=== PATIENT | male | born 1960 | race African-American/Black ===

== ENCOUNTER 2023-12-15 12:30 | Inpatient (IN) | payer MEDICAID, OTHER ==
[~2023-12-15] VITALS: Ht 180.3 cm; Wt 79.4 kg
[2023-12-15 12:30] VITALS: BP_SYST 96; PULSE 87; RESP 23; TEMP 97.7; O2SAT 96
[2023-12-15 12:57] LABS: BASOPHILS # (AUTO) 0.1 K/uL (0.0-0.2); BASOPHILS % (AUTO) 0.9 % (0.0-2.0); EOSINOPHILS # (AUTO) 0.2 K/uL (0.0-0.4); EOSINOPHILS % (AUTO) 2.6 % (0.0-4.0); HEMATOCRIT 46.2 % (36-54); HEMOGLOBIN 15.2 g/dL (14.0-18.0); LYMPHOCYTES # (AUTO) 1.6 K/uL (1.0-5.5); LYMPHOCYTES % (AUTO) 25.4 % (20.5-51.5); MEAN CORPUSCULAR HEMOGLOBIN 28 pg (27-31); MEAN CORPUSCULAR HGB CONC 33 % (32-36); MEAN CORPUSCULAR VOLUME 86 fL (79.0-98.0); MONOCYTES # (AUTO) 0.4 K/uL (0.0-1.0); MONOCYTES % (AUTO) 7.2 % (1.7-9.3); NEUTROPHILS # (AUTO) 3.9 K/uL (1.8-7.7); NEUTROPHILS % (AUTO) 63.9 % (40.0-70.0); PLATELET COUNT (AUTO) 215 K/uL (130-430); RED BLOOD CELL COUNT(AUTO) 5.37 MIL/uL (4.2-6.2); WHITE BLOOD COUNT (AUTO) 6.1 K/uL (4.8-10.8)
[2023-12-15 13:16] LABS: INR 0.9 (0.80-1.20); PROTHROMBIN TIME 10.2 SECS (9.5-12.5)
[2023-12-15 13:19] LABS: ANION GAP 10 (5-15); CALCIUM 8.7 mg/dL (8.4-11.0); CARBON DIOXIDE 27 mmol/L (23-29); CHLORIDE 105 mmol/L (98-107); CHOLESTEROL 188 mg/dL (<200); CREATININE 0.93 mg/dL (0.55-1.30); GFR AFRICAN AMERICAN 105 mL/min (>90); GLUCOSE 125 mg/dL (74-106); HDL CHOLESTEROL 59 mg/dL (>45); POTASSIUM 3.6 mmol/L (3.5-5.1); SODIUM SERUM 142 mmol/L (136-145); TRIGLYCERIDES 62 mg/dL (30-150); UREA NITROGEN, BLOOD 13 mg/dL (8-21)
[2023-12-15 13:20] LABS: GFR NON AFRICAN-AMERICAN 87 mL/min (>90)
[2023-12-15] MEDS ORDERED: NOR10 PO (13:57)
[2023-12-15] MEDS ORDERED: LISI40TA13 PO (13:59)
[2023-12-15 14:01] LABS: BILIRUBIN,URINE NEGATIVE (NEGATIVE); BLOOD, URINE NEGATIVE (NEGATIVE); CLARITY/URINE CLEAR (CLEAR); COLOR,URINE YELLOW (YELLOW); GLUCOSE,URINE NEGATIVE (NEGATIVE); KETONES,URINE NEGATIVE (NEGATIVE); LEUKOCYTE ESTERASE ,URINE NEGATIVE (NEGATIVE); NITRITE, URINE NEGATIVE (NEGATIVE); PROTEIN URINE NEGATIVE (NEGATIVE); UROBILINOGEN,URINE 0.2 (0.2-1.0)
[2023-12-15 14:19] LABS: BARBITURATE, URINE NEGATIVE (NEG <=200); BENZODIAZEPINE, URINE NEGATIVE (NEG <=150); CANNABINOID, URINE NEGATIVE (NEG <=50); COCAINE, URINE POSITIVE (NEG <=150); METHAMPHETAMINES SCREEN,URINE NEGATIVE (NEG <=500); OPIATE, URINE NEGATIVE (NEG <=100); PHENCYCLIDINE SCREEN,URINE NEGATIVE (NEG <=25); UR TRICYCLIC ANTIDEPRESSANTS NEGATIVE (NEG <=300); URINE AMPHETAMINE NEGATIVE (NEG <=500); URINE METHADONE NEGATIVE (NEG <=200); URINE OXYCODONE SCREEN NEGATIVE (NEG <=100)
[2023-12-15] MEDS ORDERED: ONDANSETRON HCL 4 MG/2 ML VIAL IVP PRN (15:45)
[2023-12-15] MEDS ORDERED: MUPIROCIN 2% TOPICAL OINTMENT 22 GM NS PRN (15:45)
[2023-12-15] MEDS ORDERED: ACETAMINOPHEN 325 MG TABLET PO PRN (15:45)
[2023-12-15] MEDS ORDERED: MAGNESIUM SULFATE 50 ML IV PRN (15:45)
[2023-12-15] MEDS ORDERED: MORPHINE 2 MG/ML INJ. SYRINGE IVP PRN ×2 (15:45)
[2023-12-15] MEDS ORDERED: POTASSIUM CHLORIDE 20 MEQ TABLET.ER PO PRN (15:45)
[2023-12-15 18:01] VITALS: BP_SYST 163; PULSE 66; RESP 16; TEMP 97.7
[2023-12-15 20:00] VITALS: BP_SYST 153; PULSE 66; RESP 18; TEMP 97.9; O2SAT 98
[2023-12-15] MEDS: HEPARIN SODIUM,PORCINE 5,000 UNITS/ML VIAL SUBCUT SCH (22:23)
[2023-12-16 00:45] VITALS: BP_SYST 166; PULSE 68; RESP 16; TEMP 97.1; O2SAT 98
[2023-12-16 07:20] LABS: BASOPHILS # (AUTO) 0.1 K/uL (0.0-0.2); BASOPHILS % (AUTO) 0.7 % (0.0-2.0); EOSINOPHILS # (AUTO) 0.2 K/uL (0.0-0.4); EOSINOPHILS % (AUTO) 2.2 % (0.0-4.0); HEMATOCRIT 47.6 % (36-54); HEMOGLOBIN 15.3 g/dL (14.0-18.0); LYMPHOCYTES # (AUTO) 2.3 K/uL (1.0-5.5); LYMPHOCYTES % (AUTO) 31.5 % (20.5-51.5); MEAN CORPUSCULAR HEMOGLOBIN 28 pg (27-31); MEAN CORPUSCULAR HGB CONC 32 % (32-36); MEAN CORPUSCULAR VOLUME 86 fL (79.0-98.0); MONOCYTES # (AUTO) 0.7 K/uL (0.0-1.0); MONOCYTES % (AUTO) 9.2 % (1.7-9.3); NEUTROPHILS # (AUTO) 4.2 K/uL (1.8-7.7); NEUTROPHILS % (AUTO) 56.4 % (40.0-70.0); PLATELET COUNT (AUTO) 220 K/uL (130-430); RED BLOOD CELL COUNT(AUTO) 5.53 MIL/uL (4.2-6.2); RED CELL DISTRIBUTION WIDTH 14.5 % (9.0-15.0); WHITE BLOOD COUNT (AUTO) 7.4 K/uL (4.8-10.8)
[2023-12-16 07:49] LABS: CALCIUM 9.2 mg/dL (8.4-11.0); CREATININE 0.87 mg/dL (0.55-1.30); POTASSIUM 3.5 mmol/L (3.5-5.1)
[2023-12-16 08:00] VITALS: BP_SYST 166; PULSE 66; RESP 17; TEMP 99; O2SAT 97
[2023-12-16] MEDS: ATORVASTATIN 20 MG TABLET PO SCH (10:15)
[2023-12-16] MEDS: amLODIPine BESYLATE 10 MG TABLET PO SCH (10:16)
[2023-12-16] MEDS: ASPIRIN 81 MG TABLET(ECOTRIN) PO SCH (10:16)
[2023-12-16 12:23] VITALS: BP_SYST 153; PULSE 66; RESP 18; TEMP 98.7; O2SAT 100
[2023-12-16] MEDS: lisinopriL 20 MG TABLET PO ONE (14:43)
[2023-12-16 16:33] VITALS: BP_SYST 162; PULSE 60; RESP 18; TEMP 98.3; O2SAT 98
[2023-12-16] MEDS ORDERED: hydrALAZINE HCL 20 MG/ML VIAL IVP PRN (17:30)
[2023-12-16 20:00] VITALS: BP_SYST 149; PULSE 62; RESP 18; TEMP 98.9; O2SAT 100
[2023-12-16] MEDS: OMEPRAZOLE Non-Formulary 20 MG CAPSULE.DR PO SCH (20:45)
[2023-12-16] MEDS: lisinopriL 20 MG TABLET PO SCH (21:58)
[2023-12-17 00:02] VITALS: BP_SYST 158; PULSE 69; RESP 18; TEMP 98.1; O2SAT 98
[2023-12-17 06:31] LABS: BASOPHILS # (AUTO) 0.1 K/uL (0.0-0.2); BASOPHILS % (AUTO) 0.9 % (0.0-2.0); EOSINOPHILS # (AUTO) 0.2 K/uL (0.0-0.4); HEMOGLOBIN 15.8 g/dL (14.0-18.0); LYMPHOCYTES # (AUTO) 2.2 K/uL (1.0-5.5); LYMPHOCYTES % (AUTO) 28.7 % (20.5-51.5); MEAN CORPUSCULAR HEMOGLOBIN 28 pg (27-31); MEAN CORPUSCULAR HGB CONC 32 % (32-36); MEAN CORPUSCULAR VOLUME 86 fL (79.0-98.0); MONOCYTES # (AUTO) 0.6 K/uL (0.0-1.0); MONOCYTES % (AUTO) 8.2 % (1.7-9.3); NEUTROPHILS # (AUTO) 4.6 K/uL (1.8-7.7); NEUTROPHILS % (AUTO) 59.2 % (40.0-70.0); PLATELET COUNT (AUTO) 231 K/uL (130-430); RED BLOOD CELL COUNT(AUTO) 5.71 MIL/uL (4.2-6.2); WHITE BLOOD COUNT (AUTO) 7.8 K/uL (4.8-10.8)
[2023-12-17 06:43] LABS: CREATININE 0.85 mg/dL (0.55-1.30); POTASSIUM 3.6 mmol/L (3.5-5.1)
[2023-12-17 07:50] VITALS: BP_SYST 162; PULSE 64; RESP 16; TEMP 98.1; O2SAT 99
[2023-12-17] MEDS: PANTOPRAZOLE SODIUM 40 MG TAB PO SCH (09:08)
[2023-12-17 11:26] VITALS: BP_SYST 153; PULSE 62; RESP 18; TEMP 98.2; O2SAT 100
[2023-12-17] MEDS: DOCUSATE SODIUM 100 MG CAPSULE PO PRN (15:54)
[2023-12-17] MEDS: NICOTINE 21 MG/24 HR PATCH.TD24 TD ONE (15:54)
[2023-12-17] MEDS: CLOPIDOGREL BISULFATE 75 MG TABLET PO ONE (15:54)
[2023-12-17 16:09] VITALS: BP_SYST 145; PULSE 69; RESP 16; TEMP 98; O2SAT 100
[2023-12-17 20:00] VITALS: BP_SYST 156; PULSE 75; RESP 18; TEMP 97.7; O2SAT 98
[2023-12-18 00:10] VITALS: BP_SYST 156; PULSE 75; RESP 18; TEMP 97.7; O2SAT 97
[2023-12-18 07:45] VITALS: BP_SYST 162; PULSE 72; RESP 12; TEMP 97.7; O2SAT 99
[2023-12-18 08:28] LABS: BASOPHILS # (AUTO) 0.1 K/uL (0.0-0.2); BASOPHILS % (AUTO) 1.1 % (0.0-2.0); EOSINOPHILS # (AUTO) 0.2 K/uL (0.0-0.4); EOSINOPHILS % (AUTO) 3.3 % (0.0-4.0); HEMATOCRIT 48.3 % (36-54); LYMPHOCYTES # (AUTO) 1.8 K/uL (1.0-5.5); LYMPHOCYTES % (AUTO) 25.6 % (20.5-51.5); MEAN CORPUSCULAR HEMOGLOBIN 28 pg (27-31); MEAN CORPUSCULAR HGB CONC 33 % (32-36); MEAN CORPUSCULAR VOLUME 85 fL (79.0-98.0); MONOCYTES # (AUTO) 0.6 K/uL (0.0-1.0); MONOCYTES % (AUTO) 9.2 % (1.7-9.3); NEUTROPHILS # (AUTO) 4.2 K/uL (1.8-7.7); NEUTROPHILS % (AUTO) 60.8 % (40.0-70.0); PLATELET COUNT (AUTO) 228 K/uL (130-430); RED BLOOD CELL COUNT(AUTO) 5.67 MIL/uL (4.2-6.2); WHITE BLOOD COUNT (AUTO) 6.9 K/uL (4.8-10.8)
[2023-12-18 08:36] LABS: CALCIUM 9.2 mg/dL (8.4-11.0); CREATININE 0.92 mg/dL (0.55-1.30); POTASSIUM 3.8 mmol/L (3.5-5.1)
[2023-12-18] MEDS: CLOPIDOGREL BISULFATE 75 MG TABLET PO SCH (09:20)
[2023-12-18] MEDS: NICOTINE 21 MG/24 HR PATCH.TD24 TD SCH (09:24)
[2023-12-18 11:56] VITALS: BP_SYST 148; PULSE 70; RESP 18; TEMP 97.8
[2023-12-18 15:55] VITALS: BP_SYST 158; PULSE 77; RESP 16; TEMP 98; O2SAT 95
[2023-12-18 19:50] VITALS: BP_SYST 138; PULSE 80; RESP 18; TEMP 98.6; O2SAT 98
[2023-12-18 20:15] VITALS: BP_SYST 163; PULSE 82; RESP 20; TEMP 98.2; O2SAT 99
[2023-12-19] VITALS: BP_SYST 144; PULSE 81; RESP 20; TEMP 98; O2SAT 97
[2023-12-19 07:18] LABS: BASOPHILS # (AUTO) 0.1 K/uL (0.0-0.2); BASOPHILS % (AUTO) 0.8 % (0.0-2.0); EOSINOPHILS # (AUTO) 0.3 K/uL (0.0-0.4); EOSINOPHILS % (AUTO) 3.9 % (0.0-4.0); HEMATOCRIT 46.2 % (36-54); HEMOGLOBIN 15.1 g/dL (14.0-18.0); LYMPHOCYTES # (AUTO) 1.7 K/uL (1.0-5.5); LYMPHOCYTES % (AUTO) 25.9 % (20.5-51.5); MEAN CORPUSCULAR HEMOGLOBIN 28 pg (27-31); MEAN CORPUSCULAR HGB CONC 33 % (32-36); MEAN CORPUSCULAR VOLUME 85 fL (79.0-98.0); MONOCYTES # (AUTO) 0.6 K/uL (0.0-1.0); MONOCYTES % (AUTO) 9.7 % (1.7-9.3); NEUTROPHILS % (AUTO) 59.7 % (40.0-70.0); PLATELET COUNT (AUTO) 216 K/uL (130-430); RED BLOOD CELL COUNT(AUTO) 5.43 MIL/uL (4.2-6.2); RED CELL DISTRIBUTION WIDTH 13.9 % (9.0-15.0); WHITE BLOOD COUNT (AUTO) 6.7 K/uL (4.8-10.8)
[2023-12-19 07:24] LABS: POTASSIUM 3.8 mmol/L (3.5-5.1)
[2023-12-19 09:00] VITALS: BP_SYST 154; RESP 16; TEMP 97.7; O2SAT 99
[2023-12-19 09:30] VITALS: O2SAT 99
[2023-12-19 12:05] VITALS: BP_SYST 147; PULSE 63; RESP 19; TEMP 98; O2SAT 98
[2023-12-19] MEDS ORDERED: ASPI-1393 PO (12:41)
[2023-12-19] MEDS ORDERED: CLOP75TA32 PO (12:41)
[2023-12-19] MEDS ORDERED: ATOR40TA68 PO (12:41)
[2023-12-19 16:41] VITALS: BP_SYST 154; PULSE 75; RESP 18; TEMP 99.3; O2SAT 98
[2023-12-19 20:15] VITALS: BP_SYST 163; PULSE 82; RESP 20; TEMP 98.2; O2SAT 99
[2023-12-20 00:30] VITALS: BP_SYST 158; PULSE 74; RESP 20; TEMP 98.2; O2SAT 94
[2023-12-20 06:36] LABS: BASOPHILS % (AUTO) 0.6 % (0.0-2.0); EOSINOPHILS # (AUTO) 0.3 K/uL (0.0-0.4); EOSINOPHILS % (AUTO) 3.5 % (0.0-4.0); HEMATOCRIT 45.6 % (36-54); LYMPHOCYTES # (AUTO) 2.3 K/uL (1.0-5.5); MEAN CORPUSCULAR HEMOGLOBIN 28 pg (27-31); MEAN CORPUSCULAR HGB CONC 33 % (32-36); MEAN CORPUSCULAR VOLUME 85 fL (79.0-98.0); MONOCYTES # (AUTO) 0.7 K/uL (0.0-1.0); MONOCYTES % (AUTO) 9.4 % (1.7-9.3); NEUTROPHILS # (AUTO) 4.1 K/uL (1.8-7.7); NEUTROPHILS % (AUTO) 55.5 % (40.0-70.0); PLATELET COUNT (AUTO) 227 K/uL (130-430); RED BLOOD CELL COUNT(AUTO) 5.36 MIL/uL (4.2-6.2); RED CELL DISTRIBUTION WIDTH 13.8 % (9.0-15.0); WHITE BLOOD COUNT (AUTO) 7.5 K/uL (4.8-10.8)
[2023-12-20 06:45] LABS: CREATININE 0.94 mg/dL (0.55-1.30)
[2023-12-20 08:00] VITALS: BP_SYST 157; PULSE 77; RESP 20; TEMP 98.6; O2SAT 97
[2023-12-20 12:12] VITALS: BP_SYST 156; PULSE 75; RESP 19; TEMP 98.5; O2SAT 98
[2023-12-20 16:07] VITALS: BP_SYST 155; PULSE 76; RESP 20; TEMP 98.7; O2SAT 97
[2023-12-20 20:00] VITALS: BP_SYST 157; PULSE 97; RESP 18; TEMP 97.6; O2SAT 100
[2023-12-20] MEDS: lisinopriL 20 MG TABLET PO SCH (21:05)
[2023-12-20] MEDS: amLODIPine BESYLATE 10 MG TABLET PO ONE (21:05)
[2023-12-21] VITALS: BP_SYST 156; PULSE 69; RESP 16; TEMP 97.3; O2SAT 97
[2023-12-21 08:00] VITALS: BP_SYST 128; PULSE 72; RESP 17; TEMP 98.3; O2SAT 99
[2023-12-21] MEDS: amLODIPine BESYLATE 10 MG TABLET PO SCH (08:22)
[2023-12-21 09:18] LABS: BASOPHILS # (AUTO) 0.1 K/uL (0.0-0.2); BASOPHILS % (AUTO) 0.9 % (0.0-2.0); EOSINOPHILS # (AUTO) 0.3 K/uL (0.0-0.4); EOSINOPHILS % (AUTO) 3.8 % (0.0-4.0); HEMATOCRIT 45.6 % (36-54); HEMOGLOBIN 15.1 g/dL (14.0-18.0); LYMPHOCYTES # (AUTO) 2.1 K/uL (1.0-5.5); LYMPHOCYTES % (AUTO) 27.6 % (20.5-51.5); MEAN CORPUSCULAR HEMOGLOBIN 28 pg (27-31); MEAN CORPUSCULAR HGB CONC 33 % (32-36); MEAN CORPUSCULAR VOLUME 86 fL (79.0-98.0); MONOCYTES # (AUTO) 0.6 K/uL (0.0-1.0); MONOCYTES % (AUTO) 8.4 % (1.7-9.3); NEUTROPHILS # (AUTO) 4.5 K/uL (1.8-7.7); NEUTROPHILS % (AUTO) 59.3 % (40.0-70.0); PLATELET COUNT (AUTO) 222 K/uL (130-430); RED BLOOD CELL COUNT(AUTO) 5.31 MIL/uL (4.2-6.2); RED CELL DISTRIBUTION WIDTH 13.6 % (9.0-15.0); WHITE BLOOD COUNT (AUTO) 7.6 K/uL (4.8-10.8)
[2023-12-21 09:46] LABS: ALBUMIN 3.6 g/dL (3.4-4.8); CALCIUM 8.8 mg/dL (8.4-11.0); CREATININE 0.9 mg/dL (0.55-1.30); TOTAL BILIRUBIN 0.7 mg/dL (0.0-1.0); TOTAL PROTEIN, SERUM 7.2 g/dL (6.4-8.3)
[2023-12-21 12:40] VITALS: BP_SYST 159; PULSE 76; RESP 22; TEMP 98.4; O2SAT 98
[2023-12-21 16:06] VITALS: BP_SYST 146; PULSE 77; RESP 19; TEMP 98.3; O2SAT 99
[2023-12-21 20:00] VITALS: BP_SYST 142; PULSE 73; RESP 16; TEMP 97.6; O2SAT 100
[2023-12-22] VITALS: BP_SYST 144; PULSE 82; RESP 16; TEMP 96.9; O2SAT 97
[2023-12-22 07:39] VITALS: BP_SYST 124; PULSE 74; RESP 18; TEMP 97.8; O2SAT 96
[2023-12-22 12:50] VITALS: BP_SYST 139; PULSE 79; RESP 18; TEMP 98.2; O2SAT 98
[2023-12-22 16:57] VITALS: BP_SYST 142; PULSE 84; RESP 16; TEMP 97.6; O2SAT 98
[2023-12-22 17:16] VITALS: BP_SYST 151; PULSE 87; RESP 18; TEMP 98.8; O2SAT 96
[2023-12-22 20:00] VITALS: BP_SYST 120; PULSE 78; RESP 18; TEMP 97.6; O2SAT 98
== END 2023-12-22 20:10 | DRG 45 ==
LOC: SED 12:30 → STU 15:34 → SMU 12-20 13:06
PROVIDERS: ADMIT Family Medicine; ATTEND Family Medicine
DX: I63.9 Cerebral infarction, unspecified (principal); G81.94 Hemiplegia, unspecified affecting left nondominant side; F43.10 Post-traumatic stress disorder, unspecified; I10 Essential (primary) hypertension; F14.920 Cocaine use, unspecified with intoxication, uncomplicated; Z20.822 Contact with and (suspected) exposure to COVID-19; R29.704 NIHSS score 4; Z72.0 Tobacco use; Z79.899 Other long term (current) drug therapy; Z88.8 Allergy status to other drugs, medicaments and biological substances
CPT/HCPCS: 36415; 70450; 70496; 70498; 70551; 71045; 80048; 80053; 80061; 80307; 81001; 81003; 83037; 83735; 84484; 85025; 85610; 85730; 86886; 86900; 86901; 92610-GN; 93005; 93306; 97112-GO; 97112-GP; 97116-GP; 97530-GO; 97530-GP; 97535-GO; 99291; G0378; J1644; Q9967